=== PATIENT | male | born 1955 | race Caucasian/White ===

== ENCOUNTER → 2025-07-08 | Outpatient (CLI) | payer BC, MEDICARE, OTHER | END | disposition home or self-care (01) | LOC: RAD 11:25 | PROVIDERS: ATTEND Nurse Practitioner Family | DX: S62.395A Other fracture of fourth metacarpal bone, left hand, initial encounter for closed fracture (principal); M79.642 Pain in left hand; J06.9 Acute upper respiratory infection, unspecified; I70.0 Atherosclerosis of aorta; M19.09 Primary osteoarthritis, other specified site; M79.89 Other specified soft tissue disorders; X58.XXXA Exposure to other specified factors, initial encounter; Y93.89 Activity, other specified; Y92.89 Other specified places as the place of occurrence of the external cause; Y99.8 Other external cause status | CPT/HCPCS: 71046; 73130-LT ==

== ENCOUNTER → 2025-07-19 | Outpatient (CLI) | payer MEDICARE, OTHER | END | disposition home or self-care (01) | LOC: RAD 09:39 | PROVIDERS: ATTEND Nurse Practitioner Family | DX: I87.2 Venous insufficiency (chronic) (peripheral) (principal); I73.9 Peripheral vascular disease, unspecified | CPT/HCPCS: 93970 ==

== ENCOUNTER → 2025-07-22 | Outpatient (CLI) | payer MEDICARE, OTHER ==
[2025-07-22 13:22] LABS: ALANINE AMINOTRANSFERASE(ML) 24.0 U/L (12-78); ALBUMIN(ML) 3.2 g/dL (3.4-5.0); CREATININE SERUM 1.8 mg/dL (0.59-1.40); EST GFR, NON-AA 37.7 (>/=60)
== END | disposition home or self-care (01) ==
LOC: LAB 12:13
PROVIDERS: ATTEND Nurse Practitioner Family
DX: I50.9 Heart failure, unspecified (principal); E53.8 Deficiency of other specified B group vitamins
CPT/HCPCS: 36415; 80053; 82746

== ENCOUNTER → 2025-08-30 | Outpatient (CLI) | payer MEDICARE, OTHER | END | disposition home or self-care (01) | LOC: RAD 15:40 | PROVIDERS: ATTEND Internal Medicine | DX: I70.213 Atherosclerosis of native arteries of extremities with intermittent claudication, bilateral legs (principal) | CPT/HCPCS: 93922; 93925 ==

== ENCOUNTER → 2025-11-02 | Day surgery (SDC) | payer MEDICARE, OTHER ==
[2025-10-31 10:21] VITALS: BP 152/72; PULSE 50; RESP 18; TEMP 98.6; O2SAT 96
[2025-10-31 11:26] LABS: CREATININE SERUM 1.25 mg/dL (0.59-1.40); EST GFR, NON-AA 57.4 (>/=60); INR 1.1; PROTHROMBIN PROTIME 11.4 SEC (9.3-11.6)
[2025-10-31 11:30] LABS: BASOPHIL # 0.1 10^3/uL (0.0-0.1); BASOPHIL % 1.4 % (0.2-1.2); EOSINOPHIL # 0.3 10^3/uL (0.0-0.2); EOSINOPHIL % 6.7 % (0.0-5.0); HEMATOCRIT(ML) 43.3 % (37.0-53.0); IG % 0.00 % (0.00-0.50); LYMPHOCYTES # 0.71 10^3/uL1 (1.0-4.8); LYMPHOCYTES % 16.9 % (24.0-44.0); MEAN CORP HGB 29.6 pg (26-34); MEAN CORP HGB CONCENTRATION 31.4 g/dL (33-36.5); MEAN CORP VOLUME 94.3 fL (78-100); MONOCYTES # 0.4 10^3/uL (0.3-0.8); MONOCYTES % 10.5 % (5.0-12.0); NEUTROPHIL # 2.7 10^3/uL (1.8-7.7); NEUTROPHILS % 64.5 % (41.0-85.0); RED BLOOD CELL 4.59 10^6/uL (4.50-5.90); RED CELL DISTRIBUTION WIDTH 16.4 % (11.5-14.5); WHITE BLOOD CELL 4.2 10^3/uL (4.5-11.0)
[2025-11-02] VITALS (14 sets, daily range): BP systolic 136–168; BP diastolic 50–84; PULSE 44–55; RESP 16–18; TEMP 97.3–97.5; O2SAT 91–97
[~2025-11-02] VITALS: Ht 182.9 cm; Wt 106.6 kg
[~2025-11-02] MED LIST: ALBU10.7 INH; AMIO200T60 PO; AMLO-169 PO; APIX2.5T PO; ASPI-667 PO; ATIVAN ONE; ATOR20TA PO; CETI10TA18 PO; CHOL100011 PO; DAPA10TA PO; ESCI20TA8 PO; FLUT1BLS3 INH; FOLI0.8C PO; FURO20TA3 PO; HYDR-3416 PO; LISI20TA21 PO; MAGN250T8 PO; METO-238 PO; MIRT-14 PO; MULT-129 PO; OMEG100021 PO; POTA10CA PO; SUBLIMAZE 100MCG/2ML ONE; VERSED ONE; VITA0.4T2 PO; XYLOCAINE ONE; [UNRECOGNIZED DRUG - CODE] PO; [UNRECOGNIZED DRUG - CODE] PO
[2025-11-02] MEDS: NS 1000ML 1,000 ML IV SCH (08:55)
[2025-11-02] MEDS: ATIVAN IV ONE ×2 (08:56→13:28)
== END | disposition home or self-care (01) ==
LOC: SDC 08:35
PROVIDERS: ATTEND Internal Medicine
DX: I70.213 Atherosclerosis of native arteries of extremities with intermittent claudication, bilateral legs (principal); I11.0 Hypertensive heart disease with heart failure; I50.9 Heart failure, unspecified; F41.9 Anxiety disorder, unspecified; F32.A Depression, unspecified; M19.90 Unspecified osteoarthritis, unspecified site; E78.5 Hyperlipidemia, unspecified; F17.210 Nicotine dependence, cigarettes, uncomplicated; F12.90 Cannabis use, unspecified, uncomplicated; Z81.1 Family history of alcohol abuse and dependence; Z79.899 Other long term (current) drug therapy; Z98.890 Other specified postprocedural states
CPT/HCPCS: 85025; 36415; 80048; 85610; 93005; 75625; 75716; 36140 ×2; 99153 ×2; 99152; J1644; C1894 ×2; A6258 ×2; C1769 ×3; J2060; J2250 ×2; J3010; A4618; C1887; C1725; Q9967; 76937; C1760